=== PATIENT | male | born 1970 ===

== ENCOUNTER 2017-11-19 09:26 | Emergency (ER) | payer BC ==
[2017-11-19 09:36] VITALS: BP 116/77; PULSE 58; RESP 18; TEMP 97.7; O2SAT 100
--- NOTE | 2017-11-19 09:55 | C.PDOC ---
History Of Present Illness Pt is a 47yo male, with no past medical history, presents to the ER for evaluation of a right sided back pain, for the past week. Patient reports the pain is worse in the morning when attempting to get up from bed and with turning his back. He reports taking Aleve yesterday with no relief. He denies any trauma, injury, dysuria, or fever. 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 He has no other medical complaints. Pt states his pain is a "6" on a 1-10 scale. PMD: Dr. Sanchez / Time Seen by Provider: 11/19/17 09:50 Chief Complaint (Nursing): Back Pain History Per: Patient History/Exam Limitations: no limitations Onset/Duration Of Symptoms: Days Current Symptoms Are (Timing): Still Present Quality Of Discomfort: "Pain" Severity: Moderate Pain Scale Rating Of: 6 Associated Symptoms: denies: Incontinence, New Weakness, New Numbness Exacerbating Factor(s): Turning, Sitting Additional History Per: Patient Past Medical History Reviewed: Historical Data, Nursing Documentation, Vital Signs Vital Signs: Last Vital Signs Temp 97.7 F 11/19/17 09:34 Pulse 58 L 11/19/17 09:34 Resp 18 11/19/17 09:34 BP 116/77 11/19/17 09:34 Pulse Ox 100 11/19/17 10:25 - Medical History PMH: No Chronic Diseases Surgical History: No Surg Hx Family History: States: No Known Family Hx - Social History Hx Tobacco Use: No Hx Alcohol Use: No Hx Substance Use: No - Immunization History Hx Tetanus Toxoid Vaccination: No Hx Influenza Vaccination: No Hx Pneumococcal Vaccination: No Review Of Systems Except As Marked, All Systems Reviewed And Found Negative. Constitutional: Negative for: Fever Genitourinary: Negative for: Dysuria, Incontinence Musculoskeletal: Positive for: Back Pain Physical Exam - Physical Exam Appears: Non-toxic, No Acute Distress Skin: Normal Color, Warm, Dry, Other (multiple tattoos) Head: Atraumatic, Normacephalic Eye(s): bilateral: Normal Inspection Ear(s): Bilateral: Normal Nose: Normal Lips: Normal Appearing Throat: Normal Neck: Normal ROM, Supple Chest: Symmetrical Cardiovascular: Rhythm Regular Respiratory: Normal Breath Sounds Back: No Vertebral Tenderness, Decreased ROM (due to pain), Paraspinal Tenderness (para thoracic tenderness) Extremity: Normal ROM Neurological/Psych: Oriented x3 ED Course And Treatment O2 Sat by Pulse Oximetry: 100 (RA) Pulse Ox Interpretation: Normal Medical Decision Making Medical Decision Making: Impression: Back strain Plan: -- Motrin 600mg PO -- Tylenol 975mg PO -- Lidoderm patch Progress note(s): Patient left the ER w/o announcing his departure. Will close out chart. Disposition - Disposition Disposition: ELOPEMENT - ER ONLY Disposition Time: 10:44 Condition: STABLE - POA Present On Arrival: None - Clinical Impression Clinical Impression: Thoracic back sprain, Thoracic back pain - Scribe Statement The provider has reviewed the documentation as recorded by the Scribe (Janelle Lackey) Provider Attestation: All medical record entries made by the Scribe were at my direction and personally dictated by me. I have reviewed the chart and agree that the record accurately reflects my personal performance of the history, physical exam, medical decision making, and the department course for this patient. I have also personally directed, reviewed, and agree with the discharge instructions and disposition.
[2017-11-19] MEDS ORDERED: Lidocaine 5% Patch TD STA (09:57)
[2017-11-19] MEDS ORDERED: Lidocaine 5% Patch TD ONE (10:10)
== END 2017-11-19 10:44 | disposition left against medical advice (07) ==
LOC: C.ER 09:26
DX: S23.3XXA Sprain of ligaments of thoracic spine, initial encounter (principal); X58.XXXA Exposure to other specified factors, initial encounter; M54.6 Pain in thoracic spine